=== PATIENT | male | born 1980 | race Caucasian/White ===

== ENCOUNTER 2016-12-11 11:17 | Emergency (ER) | payer MEDICAID ==
[~2016-12-11] VITALS: Ht 167.6 cm; Wt 65.0 kg
[~2016-12-11 11:17] MED LIST: ALBU0.63 NEB; BUTA1CAP57 PO; DIAZ2TAB3 PO; GABA300C10 PO; HYDR-3241 PO; LEVO750T6 PO; MECL25TA4 PO; METR500T PO; ONDA4TAB10 PO; OXYC-302 PO; OXYC5CAP4 PO; VALA1000 PO; naproxen PO
[2016-12-11] MEDS ORDERED: METHOCARBAMOL 750 MG TABLET ONE (12:20)
[2016-12-11] MEDS ORDERED: IBUPROFEN 200 MG TABLET ONE (12:20)
[2016-12-11] MEDS ORDERED: OXYcodone/APAP 5/325MG TABLET ONE (12:20)
[2016-12-11] MEDS ORDERED: OXYcodone/APAP 5/325MG TABLET PO ONE (12:30)
[2016-12-11] MEDS ORDERED: METHOCARBAMOL 750 MG TABLET PO ONE (12:30)
[2016-12-11] MEDS ORDERED: IBUPROFEN 200 MG TABLET PO ONE (12:30)
[2016-12-11] MEDS ORDERED: IBUP800T PO (12:30)
[2016-12-11] MEDS ORDERED: CYCL5TAB PO (12:30)
[2016-12-11 13:38] VITALS: BP 117/78
== END 2016-12-11 13:41 | disposition home or self-care (01) ==
LOC: ED 12:06
DX: S39.012A Strain of muscle, fascia and tendon of lower back, initial encounter (principal); M19.90 Unspecified osteoarthritis, unspecified site; G43.909 Migraine, unspecified, not intractable, without status migrainosus; J45.909 Unspecified asthma, uncomplicated; I50.9 Heart failure, unspecified; F17.210 Nicotine dependence, cigarettes, uncomplicated; Z88.0 Allergy status to penicillin; Z88.5 Allergy status to narcotic agent; Z88.8 Allergy status to other drugs, medicaments and biological substances; X58.XXXA Exposure to other specified factors, initial encounter; Y93.89 Activity, other specified; Y99.8 Other external cause status; Y92.89 Other specified places as the place of occurrence of the external cause
CPT/HCPCS: 72110; 99284

== ENCOUNTER 2016-12-29 22:46 | Emergency (ER) | payer MEDICAID ==
[~2016-12-29] VITALS: Ht 167.6 cm; Wt 71.5 kg
[~2016-12-29 22:46] MED LIST changes: +CYCL5TAB PO; +IBUP800T PO
[2016-12-29 22:51] VITALS: BP 100/64
[2016-12-29] MEDS ORDERED: DIPH,PERTUSS(ACELL),TET VAC/PF 0.5 ML IM-VACC ONE ×2 (23:30→23:49)
== END 2016-12-30 00:01 | disposition home or self-care (01) ==
LOC: ED 23:58
DX: S91.332A Puncture wound without foreign body, left foot, initial encounter (principal); W22.8XXA Striking against or struck by other objects, initial encounter; Y93.89 Activity, other specified; Y92.89 Other specified places as the place of occurrence of the external cause; Y99.8 Other external cause status; I50.9 Heart failure, unspecified
CPT/HCPCS: 90471; 90715

== ENCOUNTER 2017-07-22 14:58 | Emergency (ER) | payer MEDICAID ==
[~2017-07-22] VITALS: Ht 167.6 cm; Wt 70.0 kg
[~2017-07-22 14:58] MED LIST changes: +ALBU6.7H INH; +BUTA1CAP30 PO; +FURO20TA3 PO; +IBUP-1223 PO; -IBUP800T PO; +LITH300C PO; +MOME13HF INH; +OXYC5CAP2 PO; -OXYC5CAP4 PO; +POTA10CA PO; +TRAM50TA2 PO
[2017-07-22] MEDS ORDERED: DIPHENHYDRAMINE 50 MG/ML, 1ML ONE (17:56)
[2017-07-22] MEDS ORDERED: METOCLOPRAMIDE 5 MG/ML, 2ML ONE (17:56)
[2017-07-22] MEDS ORDERED: KETOROLAC 30 MG/1 ML ONE (17:56)
[2017-07-22] MEDS ORDERED: METOCLOPRAMIDE 5 MG/ML, 2ML IVPush ONE (18:00)
[2017-07-22] MEDS ORDERED: DIPHENHYDRAMINE 50 MG/ML, 1ML IVPush ONE (18:00)
[2017-07-22] MEDS ORDERED: KETOROLAC 30 MG/1 ML IVPush ONE (18:00)
[2017-07-22] MEDS ORDERED: SODIUM CHLORIDE FLUSH 10ML SYR IVF ONE (18:00)
[2017-07-22] MEDS ORDERED: SODIUM CHLORIDE 0.9% 1,000ML IVBOLUS ONE (18:00)
[2017-07-22 18:06] LABS: HEMATOCRIT 48.8 % (39.2-51.8); HEMOGLOBIN 16.9 g/dL (13.7-18.0); WHITE BLOOD COUNT 11.4 x10^3/uL (3.4-10)
[2017-07-22 18:14] LABS: BLOOD UREA NITROGEN 14 mg/dL (7-18)
[2017-07-22 20:20] VITALS: BP 96/63
== END 2017-07-22 20:24 | disposition home or self-care (01) ==
LOC: ED 18:50
DX: G43.009 Migraine without aura, not intractable, without status migrainosus (principal); H54.60 Unqualified visual loss, one eye, unspecified; J45.909 Unspecified asthma, uncomplicated; I50.9 Heart failure, unspecified; I42.9 Cardiomyopathy, unspecified; Z98.61 Coronary angioplasty status; Z90.49 Acquired absence of other specified parts of digestive tract
CPT/HCPCS: 36415; 80048; 82040; 85025; 93005; 96374; 96375; 99285; J1200; J1885; J2765; J7030

== ENCOUNTER 2017-10-10 12:47 | Emergency (ER) | payer MEDICAID ==
[~2017-10-10] VITALS: Ht 167.6 cm; Wt 70.0 kg
[2017-10-10] MEDS ORDERED: KETOROLAC 30 MG/1 ML IM ONE (13:30)
[2017-10-10] MEDS ORDERED: DIAZEPAM 5 MG TABLET PO ONE (13:30)
[2017-10-10] MEDS ORDERED: DIAZEPAM 5 MG TABLET ONE (14:22)
[2017-10-10] MEDS ORDERED: KETOROLAC 30 MG/1 ML ONE (14:22)
[2017-10-10] MEDS ORDERED: OXYcodone/APAP 5/325MG TABLET ONE (14:46)
[2017-10-10] MEDS ORDERED: SODIUM CHLORIDE 0.9% 1,000 ML IV ONE (14:58)
[2017-10-10] MEDS ORDERED: SODIUM CHLORIDE FLUSH 10ML SYR IVF ONE (15:00)
[2017-10-10] MEDS ORDERED: MORPHINE SULFATE 4 MG/ML, 1ML IVPush PRN (15:00)
[2017-10-10] MEDS ORDERED: DEXAMETHASONE 4 MG/ML, 1ML IV ONE (15:00)
[2017-10-10] MEDS ORDERED: OXYcodone/APAP 5/325MG TABLET PO ONE (15:00)
[2017-10-10] MEDS ORDERED: DEXAMETHASONE 4 MG/ML, 5ML ONE (15:04)
[2017-10-10 15:21] LABS: BASOPHILS # (AUTO) 0.08 x10^3/uL (0-0.1); BASOPHILS % (AUTO) 1 % (0-1); EOSINOPHILS # (AUTO) 0.32 x10^3/uL (0-0.4); EOSINOPHILS % (AUTO) 3 % (1-7); LYMPHOCYTES # (AUTO) 3.45 x10^3/uL (1-3.4); LYMPHOCYTES % (AUTO) 34 % (22-44); MD NO; MEAN CORPUSCULAR HEMOGLOBIN 31.1 pg (27.5-34.5); MEAN CORPUSCULAR HGB CONC 33.3 g/dL (33.2-36.2); MEAN CORPUSCULAR VOLUME 93.5 fL (81-97); MEAN PLATELET VOLUME 8.8 fL (7.4-10.4); MONOCYTES # (AUTO) 0.75 x10^3/uL (0.2-0.8); MONOCYTES % (AUTO) 7 % (2-9); NEUTROPHILS # (AUTO) 5.71 x10^3/uL (1.8-6.8); NEUTROPHILS % (AUTO) 55 % (42-75); PLATELET COUNT 266 x10^3/uL (130-400); RED BLOOD COUNT 5.83 x10^6/uL (4.38-5.82); RED CELL DISTRIBUTION WIDTH 13.2 % (9.4-14.8)
[2017-10-10 15:30] LABS: ANION GAP 6 mmol/L (5-15); CHLORIDE 105 mmol/L (98-107); CREATININE 0.94 mg/dL (0.7-1.3)
[2017-10-10] MEDS ORDERED: GADOBUTROL 7.5 MMOL/7.5 ML PFS ONE (15:37)
[2017-10-10 16:37] VITALS: BP 107/72
[2017-10-10 16:40] LABS: HCT (SEDRATE) 54.5 % (39.2-51.8)
== END 2017-10-10 17:09 | disposition home or self-care (01) ==
LOC: ED 16:15
DX: M51.16 Intervertebral disc disorders with radiculopathy, lumbar region (principal); Z88.0 Allergy status to penicillin; Z88.5 Allergy status to narcotic agent; Z88.8 Allergy status to other drugs, medicaments and biological substances; Z79.899 Other long term (current) drug therapy
CPT/HCPCS: 36415; 72110; 72158; 80048; 82040; 85025; 85651; 96372; 99285; A9585; J1885

== ENCOUNTER 2017-10-31 16:37 | Emergency (ER) | payer MEDICAID ==
[~2017-10-31] VITALS: Ht 167.6 cm; Wt 78.0 kg
[2017-10-31 17:26] LABS: BASOPHILS # (AUTO) 0.03 x10^3/uL (0-0.1); BASOPHILS % (AUTO) 0 % (0-1); EOSINOPHILS # (AUTO) 0.29 x10^3/uL (0-0.4); EOSINOPHILS % (AUTO) 2 % (1-7); LYMPHOCYTES # (AUTO) 3.22 x10^3/uL (1-3.4); LYMPHOCYTES % (AUTO) 27 % (22-44); MD NO; MEAN CORPUSCULAR HEMOGLOBIN 31.6 pg (27.5-34.5); MEAN CORPUSCULAR HGB CONC 33.7 g/dL (33.2-36.2); MEAN CORPUSCULAR VOLUME 93.8 fL (81-97); MEAN PLATELET VOLUME 9.1 fL (7.4-10.4); MONOCYTES # (AUTO) 0.66 x10^3/uL (0.2-0.8); MONOCYTES % (AUTO) 6 % (2-9); NEUTROPHILS # (AUTO) 7.54 x10^3/uL (1.8-6.8); NEUTROPHILS % (AUTO) 64 % (42-75); PLATELET COUNT 275 x10^3/uL (130-400); RED BLOOD COUNT 5.37 x10^6/uL (4.38-5.82); RED CELL DISTRIBUTION WIDTH 13.2 % (9.4-14.8)
[2017-10-31 17:28] LABS: INTERNATIONAL NORMALIZED RATIO 1.04 (0.93-1.1); PROTHROMBIN TIME 10.8 Seconds (9.6-11.5)
[2017-10-31 17:32] LABS: ALANINE AMINOTRANSFERASE 25 U/L (12-78); ALBUMIN 3.8 g/dL (3.4-5.0); ANION GAP 7 mmol/L (5-15); CHLORIDE 110 mmol/L (98-107); CREATININE 0.99 mg/dL (0.7-1.3)
[2017-10-31 17:37] LABS: ALKALINE PHOSPHATASE 72 U/L (45-117); BILIRUBIN,TOTAL 0.4 mg/dL (0.2-1.0); TOTAL PROTEIN 7.4 g/dL (6.4-8.2); TROPONIN I < 0.015 ng/mL (0.000-0.045)
[2017-10-31 19:28] LABS: TROPONIN I < 0.015 ng/mL (0.000-0.045)
[2017-10-31] MEDS ORDERED: MAALOX/HYOSCYAMINE/LIDOCAINE 45 ML BTL ONE (19:59)
[2017-10-31] MEDS ORDERED: IBUPROFEN 200 MG TABLET ONE (19:59)
[2017-10-31] MEDS ORDERED: SODIUM CHLORIDE 0.9% 1,000ML IVBOLUS ONE (20:00)
[2017-10-31] MEDS ORDERED: IBUPROFEN 200 MG TABLET PO ONE (20:00)
[2017-10-31] MEDS ORDERED: MAALOX/HYOSCYAMINE/LIDOCAINE 45 ML BTL PO ONE (20:00)
[2017-10-31] MEDS ORDERED: ONDANSETRON ODT 8 MG PO ONE (21:00)
[2017-10-31] MEDS ORDERED: ONDANSETRON ODT 8 MG ONE (21:03)
[2017-10-31 22:04] VITALS: BP 94/59
== END 2017-10-31 22:06 | disposition home or self-care (01) ==
LOC: ED 21:29
DX: R07.89 Other chest pain (principal); J44.9 Chronic obstructive pulmonary disease, unspecified; M19.90 Unspecified osteoarthritis, unspecified site; Z90.49 Acquired absence of other specified parts of digestive tract; I42.9 Cardiomyopathy, unspecified
CPT/HCPCS: 36415; 71045; 80053; 84484; 85025; 85610; 85730; 93005; 96360; 99285; J7030; Q0162

== ENCOUNTER 2018-05-14 15:27 | Observation (INO) | payer MEDICAID ==
[~2018-05-14] VITALS: Ht 172.7 cm; Wt 65.8 kg
[2018-05-14 16:00] LABS: BASOPHILS # (AUTO) 0.05 x10^3/uL (0-0.1); BASOPHILS % (AUTO) 1 % (0-1); EOSINOPHILS # (AUTO) 0.22 x10^3/uL (0-0.4); EOSINOPHILS % (AUTO) 2 % (1-7); LYMPHOCYTES % (AUTO) 37 % (22-44); MD NO; MEAN CORPUSCULAR HEMOGLOBIN 31.7 pg (27.5-34.5); MEAN CORPUSCULAR HGB CONC 33.9 g/dL (33.2-36.2); MEAN CORPUSCULAR VOLUME 93.6 fL (81-97); MEAN PLATELET VOLUME 8.7 fL (7.4-10.4); MONOCYTES # (AUTO) 0.85 x10^3/uL (0.2-0.8); MONOCYTES % (AUTO) 9 % (2-9); NEUTROPHILS # (AUTO) 5.08 x10^3/uL (1.8-6.8); NEUTROPHILS % (AUTO) 51 % (42-75); PLATELET COUNT 288 x10^3/uL (130-400); RED BLOOD COUNT 5.29 x10^6/uL (4.38-5.82); RED CELL DISTRIBUTION WIDTH 13.7 % (9.4-14.8)
[2018-05-14 16:09] LABS: ALANINE AMINOTRANSFERASE 44 U/L (12-78); ALBUMIN 4.1 g/dL (3.4-5.0); ANION GAP 8 mmol/L (5-15); CALCIUM 8.8 mg/dL (8.5-10.1); CHLORIDE 104 mmol/L (98-107); SALICYLATE LEVEL 3.8 mg/dL (2.8-20.0)
[2018-05-14 16:11] LABS: ALKALINE PHOSPHATASE 95 U/L (45-117); BILIRUBIN,TOTAL 0.5 mg/dL (0.2-1.0); CREATININE 0.98 mg/dL (0.7-1.3); TOTAL PROTEIN 8.3 g/dL (6.4-8.2)
[2018-05-14 16:14] LABS: ACETAMINOPHEN < 2 mcg/mL (10-30)
[2018-05-14 16:53] LABS: AMPHETAMINE SCREEN, URINE Negative (Negative); BARBITURATE SCREEN, URINE Negative (Negative); BENZODIAZEPINE SCREEN, URINE Negative (Negative); CANNABINOID SCREEN, URINE Negative (Negative); COCAINE SCREEN, URINE Negative (Negative); METHADONE SCREEN, URINE Negative (Negative); OPIATE SCREEN, URINE Negative (Negative)
[2018-05-14] MEDS ORDERED: ASCO10004 PO (16:55)
[2018-05-14] MEDS ORDERED: LOPE2CAP PO (16:55)
[2018-05-14] MEDS ORDERED: PANT40TA3 PO (16:55)
[2018-05-14] MEDS ORDERED: PROP80CA3 PO (16:55)
[2018-05-14] MEDS ORDERED: MULT1TAB60 PO (16:55)
[2018-05-14] MEDS ORDERED: ONDA4TAB12 PO (16:55)
[2018-05-14] MEDS ORDERED: DULOXETINE PO (16:55)
[2018-05-14] MEDS ORDERED: VALA1000 PO (16:55)
[2018-05-14] MEDS ORDERED: HYDR25TA11 PO (16:55)
[2018-05-14] MEDS ORDERED: PROPRANOLOl 80 MG CAP.SA.24H PO PRN (21:00)
[2018-05-14] MEDS ORDERED: DOCUSATE 100 MG CAPSULE PO PRN (21:00)
[2018-05-14] MEDS ORDERED: [UNRECOGNIZED DRUG - OTHER] INH SCH (21:00)
[2018-05-14] MEDS ORDERED: FORMOTEROL INH SCH (21:00)
[2018-05-14] MEDS ORDERED: MOMETASONE INH SCH (21:00)
[2018-05-14] MEDS ORDERED: ALBUTEROL SULFATE INH PRN (21:00)
[2018-05-14] MEDS ORDERED: CYCLOBENZAPRINE 10 MG TABLET ONE (22:26)
[2018-05-14] MEDS ORDERED: IBUPROFEN 800 MG TABLET ONE (22:26)
[2018-05-14] MEDS ORDERED: GABAPENTIN 300 MG CAPSULE ONE (22:27)
[2018-05-14] MEDS ORDERED: OLANZAPINE 5 MG TABLET ONE (22:27)
[2018-05-14] MEDS: HYDROXYZINE HCL 50 MG PO SCH (22:55)
[2018-05-14] MEDS: ASCORBIC ACID 500 MG TABLET PO SCH (22:55)
[2018-05-14] MEDS: DULOXETINE 30 MG CAPSULE.DR PO SCH (22:55)
[2018-05-14] MEDS: IBUPROFEN 800 MG TABLET PO SCH (22:55)
[2018-05-14] MEDS: TEMPLATE NON-FORMULARY MED. (Gabapentin** 300 MG) PO SCH (22:56)
[2018-05-14] MEDS: TEMPLATE NON-FORMULARY MED. (Cyclobenzaprine Hcl** 5 MG) PO SCH (22:56)
[2018-05-14] MEDS: OLANZAPINE 5 MG TABLET PO SCH (22:56)
[2018-05-15] MEDS ORDERED: PANTOPRAZOLE SODIUM 40 MG PO SCH (09:00)
[2018-05-15] MEDS ORDERED: TEMPLATE NON-FORMULARY MED. (Valacyclovir Hcl** (Valacyclovir**) 1,000 MG) PO SCH (09:00)
[2018-05-15] MEDS ORDERED: MULTIVITAMIN PO SCH (09:00)
[2018-05-15] MEDS: HYDROXYZINE HCL 50 MG PO SCH ×2 (09:00→14:53)
[2018-05-15] MEDS: TEMPLATE NON-FORMULARY MED. (Cyclobenzaprine Hcl** 5 MG) PO SCH ×2 (09:00→14:53)
[2018-05-15] MEDS: TEMPLATE NON-FORMULARY MED. (Gabapentin** 300 MG) PO SCH ×2 (09:00→14:53)
[2018-05-15] MEDS ORDERED: IBUPROFEN 800 MG TABLET ONE (13:30)
[2018-05-15] MEDS: IBUPROFEN 800 MG TABLET PO SCH ×2 (13:32→21:40)
[2018-05-15] MEDS: DULOXETINE 30 MG CAPSULE.DR PO SCH ×2 (13:32→21:42)
[2018-05-15] MEDS: ASCORBIC ACID 500 MG TABLET PO SCH ×2 (14:50→21:42)
[2018-05-15 16:45] VITALS: BP 115/79
[2018-05-15] MEDS ORDERED: DULARA MC SCH (17:00)
[2018-05-15 19:38] VITALS: BP 108/61
[2018-05-15] MEDS: GABAPENTIN 300 MG CAPSULE PO SCH (21:41)
[2018-05-15] MEDS: OLANZAPINE 5 MG TABLET PO SCH (21:42)
[2018-05-15] MEDS: CYCLOBENZAPRINE 10 MG TABLET PO SCH (21:42)
[2018-05-15] MEDS: hydrOXyzine 50MG TABLET PO SCH (21:45)
[2018-05-16 07:57] VITALS: BP 113/65
[2018-05-16] MEDS: GABAPENTIN 300 MG CAPSULE PO SCH ×3 (08:50→20:41)
[2018-05-16] MEDS: DULOXETINE 30 MG CAPSULE.DR PO SCH ×2 (08:50→20:40)
[2018-05-16] MEDS: IBUPROFEN 800 MG TABLET PO SCH ×2 (08:50→20:41)
[2018-05-16] MEDS: MULTIVITAMIN 1 TABLET PO SCH (08:50)
[2018-05-16] MEDS: CYCLOBENZAPRINE 10 MG TABLET PO SCH ×2 (08:50→20:41)
[2018-05-16] MEDS: hydrOXyzine 50MG TABLET PO SCH ×2 (08:51→20:44)
[2018-05-16] MEDS: ASCORBIC ACID 500 MG TABLET PO SCH ×2 (08:51→20:41)
[2018-05-16] MEDS: VALACYCLOVIR 500MG TABLET PO SCH (08:53)
[2018-05-16] MEDS: PANTOPROZOLE 40MG TABLET PO SCH (08:53)
[2018-05-16] MEDS: FLUTICASONE/VILANTEROL 200-25MCG/INH INH SCH (10:17)
[2018-05-16 13:39] VITALS: BP 107/70
[2018-05-16 19:44] VITALS: BP 114/74
[2018-05-16] MEDS: OLANZAPINE 5 MG TABLET PO SCH (20:41)
[2018-05-17 08:00] VITALS: BP 122/78
[2018-05-17] MEDS: hydrOXyzine 50MG TABLET PO SCH ×2 (09:00→20:05)
[2018-05-17] MEDS: ASCORBIC ACID 500 MG TABLET PO SCH ×2 (09:13→20:05)
[2018-05-17] MEDS: IBUPROFEN 800 MG TABLET PO SCH ×2 (09:13→20:05)
[2018-05-17] MEDS: FLUTICASONE/VILANTEROL 200-25MCG/INH INH SCH (09:13)
[2018-05-17] MEDS: PANTOPROZOLE 40MG TABLET PO SCH (09:13)
[2018-05-17] MEDS: VALACYCLOVIR 500MG TABLET PO SCH (09:14)
[2018-05-17] MEDS: DULOXETINE 30 MG CAPSULE.DR PO SCH ×2 (09:14→20:05)
[2018-05-17] MEDS: CYCLOBENZAPRINE 10 MG TABLET PO SCH ×2 (09:14→23:20)
[2018-05-17] MEDS: GABAPENTIN 300 MG CAPSULE PO SCH ×3 (09:16→20:05)
[2018-05-17] MEDS: MULTIVITAMIN 1 TABLET PO SCH (09:16)
[2018-05-17 12:37] VITALS: BP 118/84
[2018-05-17] MEDS: ACETAMINOPHEN 325 MG TABLET PO PRN (15:58)
[2018-05-17 19:31] VITALS: BP 105/80
[2018-05-17] MEDS: OLANZAPINE 5 MG TABLET PO SCH (20:05)
[2018-05-18] MEDS: CYCLOBENZAPRINE 10 MG TABLET PO SCH ×2 (08:09→21:07)
[2018-05-18] MEDS: FLUTICASONE/VILANTEROL 200-25MCG/INH INH SCH (08:09)
[2018-05-18] MEDS: VALACYCLOVIR 500MG TABLET PO SCH (08:09)
[2018-05-18] MEDS: hydrOXyzine 50MG TABLET PO SCH ×2 (08:10→21:06)
[2018-05-18] MEDS: DULOXETINE 30 MG CAPSULE.DR PO SCH ×2 (08:10→21:06)
[2018-05-18] MEDS: IBUPROFEN 800 MG TABLET PO SCH ×2 (08:10→21:06)
[2018-05-18] MEDS: ASCORBIC ACID 500 MG TABLET PO SCH ×2 (08:10→21:06)
[2018-05-18] MEDS: GABAPENTIN 300 MG CAPSULE PO SCH ×3 (08:11→21:06)
[2018-05-18] MEDS: MULTIVITAMIN 1 TABLET PO SCH (08:11)
[2018-05-18] MEDS: PANTOPROZOLE 40MG TABLET PO SCH (08:11)
[2018-05-18 08:15] VITALS: BP 119/75
[2018-05-18] MEDS ORDERED: LIDODERM 5% PATCH TD SCH (10:30)
[2018-05-18 12:41] VITALS: BP 115/75
[2018-05-18] MEDS: ACETAMINOPHEN 325 MG TABLET PO PRN (16:07)
[2018-05-18] MEDS ORDERED: CALCIUM CARBONATE 500 MG TAB.CHEW PO PRN (17:30)
[2018-05-18] MEDS ORDERED: ONDANSETRON ODT 4 MG PO PRN (17:30)
[2018-05-18] MEDS ORDERED: ONDANSETRON ODT 4 MG ONE (17:34)
[2018-05-18 20:00] VITALS: BP 112/75
[2018-05-18] MEDS: OLANZAPINE 5 MG TABLET PO SCH (21:06)
[2018-05-19 08:00] VITALS: BP 93/56
[2018-05-19] MEDS: GABAPENTIN 300 MG CAPSULE PO SCH (08:44)
[2018-05-19] MEDS: FLUTICASONE/VILANTEROL 200-25MCG/INH INH SCH (08:44)
[2018-05-19] MEDS: hydrOXyzine 50MG TABLET PO SCH (08:44)
[2018-05-19] MEDS: CYCLOBENZAPRINE 10 MG TABLET PO SCH (08:44)
[2018-05-19] MEDS: VALACYCLOVIR 500MG TABLET PO SCH (08:44)
[2018-05-19] MEDS: PANTOPROZOLE 40MG TABLET PO SCH (08:44)
[2018-05-19] MEDS: IBUPROFEN 800 MG TABLET PO SCH (08:44)
[2018-05-19] MEDS: MULTIVITAMIN 1 TABLET PO SCH (08:45)
[2018-05-19] MEDS: ASCORBIC ACID 500 MG TABLET PO SCH (08:45)
[2018-05-19] MEDS: DULOXETINE 30 MG CAPSULE.DR PO SCH (08:45)
== END 2018-05-19 14:30 ==
LOC: ED 16:30 → EDIP 19:24 → INTOOBSV 19:24 → 2N 05-15 16:00
PROVIDERS: ADMIT Internal Medicine; ATTEND Internal Medicine
DX: R45.851 Suicidal ideations (principal); F31.9 Bipolar disorder, unspecified; J44.9 Chronic obstructive pulmonary disease, unspecified; I42.9 Cardiomyopathy, unspecified; I50.9 Heart failure, unspecified; G89.29 Other chronic pain; G43.909 Migraine, unspecified, not intractable, without status migrainosus; F17.200 Nicotine dependence, unspecified, uncomplicated; F15.10 Other stimulant abuse, uncomplicated; F43.12 Post-traumatic stress disorder, chronic
CPT/HCPCS: 36415; 80053; 80164; 80307; 80329; 85025; 99285; G0378; Q0162; Q0177; G0480

== ENCOUNTER 2018-12-15 13:12 | Emergency (ER) | payer MEDICAID ==
[~2018-12-15] VITALS: Ht 175.3 cm; Wt 65.9 kg
[~2018-12-15 13:12] MED LIST changes: +ASCO10004 PO; +DULOXETINE PO; +HYDR25TA11 PO; +LOPE2CAP PO; +MULT1TAB60 PO; +ONDA4TAB12 PO; +PANT40TA3 PO; +PROP80CA3 PO
[2018-12-15 13:52] LABS: BASOPHILS # (AUTO) 0.05 x10^3/uL (0-0.1); BASOPHILS % (AUTO) 1 % (0-1); EOSINOPHILS # (AUTO) 0.35 x10^3/uL (0-0.4); EOSINOPHILS % (AUTO) 4 % (1-7); LYMPHOCYTES # (AUTO) 3.24 x10^3/uL (1-3.4); LYMPHOCYTES % (AUTO) 37 % (22-44); MD NO; MEAN CORPUSCULAR HEMOGLOBIN 31.7 pg (27.5-34.5); MEAN CORPUSCULAR HGB CONC 33.8 g/dL (33.2-36.2); MEAN CORPUSCULAR VOLUME 93.7 fL (81-97); MEAN PLATELET VOLUME 8.9 fL (7.4-10.4); MONOCYTES % (AUTO) 9 % (2-9); NEUTROPHILS # (AUTO) 4.36 x10^3/uL (1.8-6.8); NEUTROPHILS % (AUTO) 50 % (42-75); PLATELET COUNT 250 x10^3/uL (130-400); RED BLOOD COUNT 4.89 x10^6/uL (4.38-5.82)
[2018-12-15 14:05] LABS: ALANINE AMINOTRANSFERASE 28 U/L (12-78); ALBUMIN 3.9 g/dL (3.4-5.0); ANION GAP 7 mmol/L (5-15); CALCIUM 8.9 mg/dL (8.5-10.1); CHLORIDE 109 mmol/L (98-107)
[2018-12-15 14:07] LABS: ALKALINE PHOSPHATASE 89 U/L (45-117); BILIRUBIN,TOTAL 0.6 mg/dL (0.2-1.0); CREATININE 1.18 mg/dL (0.7-1.3); TOTAL PROTEIN 7.3 g/dL (6.4-8.2)
--- NOTE | 2018-12-15 14:15 | NUR ---
Medical student at bedside.
[2018-12-15] MEDS ORDERED: MAALOX/HYOSCYAMINE/LIDOCAINE 45 ML BTL ONE (14:51)
[2018-12-15] MEDS ORDERED: MAALOX/HYOSCYAMINE/LIDOCAINE 45 ML BTL PO ONE (15:00)
[2018-12-15] MEDS ORDERED: MAGNESIUM CITRATE 300ML ORAL SOL PO ONE (15:00)
[2018-12-15] MEDS ORDERED: MAGNESIUM CITRATE 300ML ORAL SOL ONE (15:05)
[2018-12-15 15:19] VITALS: BP 125/74
--- NOTE | 2018-12-15 15:19 | NUR ---
Patient/Caregiver given discharge instructions and they have confirmed that they understand the instructions. Patient ambulatory with steady gait.
[2018-12-15 15:26] LABS: MICROSCOPIC INDICATED
[2018-12-15 15:28] LABS: CULTURE INDICATED? NO
== END 2018-12-15 15:20 | disposition home or self-care (01) ==
LOC: ED 15:14
DX: K59.00 Constipation, unspecified (principal); R11.0 Nausea; J44.9 Chronic obstructive pulmonary disease, unspecified; G43.909 Migraine, unspecified, not intractable, without status migrainosus
CPT/HCPCS: 36415; 74021; 80053; 81001; 85025; 99284

== ENCOUNTER 2018-12-19 00:07 | Emergency (ER) | payer MEDICAID ==
[~2018-12-19] VITALS: Ht 172.7 cm; Wt 66.0 kg
[2018-12-19] MEDS ORDERED: KETOROLAC 30 MG/1 ML IM ONE (00:30)
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
[2018-12-19 00:53] LABS: BASOPHILS # (AUTO) 0.04 x10^3/uL (0-0.1); BASOPHILS % (AUTO) 0 % (0-1); EOSINOPHILS % (AUTO) 1 % (1-7); LYMPHOCYTES % (AUTO) 22 % (22-44); MD NO; MEAN CORPUSCULAR HGB CONC 34.6 g/dL (33.2-36.2); MEAN CORPUSCULAR VOLUME 92.4 fL (81-97); MEAN PLATELET VOLUME 9.3 fL (7.4-10.4); MONOCYTES # (AUTO) 0.52 x10^3/uL (0.2-0.8); MONOCYTES % (AUTO) 6 % (2-9); NEUTROPHILS # (AUTO) 5.98 x10^3/uL (1.8-6.8); NEUTROPHILS % (AUTO) 70 % (42-75); PLATELET COUNT 236 x10^3/uL (130-400); RED BLOOD COUNT 5.15 x10^6/uL (4.38-5.82); RED CELL DISTRIBUTION WIDTH 12.8 % (9.4-14.8)
[2018-12-19] MEDS ORDERED: KETOROLAC 30 MG/1 ML ONE (01:01)
[2018-12-19 01:04] VITALS: BP 112/73
--- NOTE | 2018-12-19 01:11 | NUR ---
BREAK RN: PT BACK FROM XRAY
--- NOTE | 2018-12-19 01:55 | NUR ---
REPORT OF PT FROM ROSA ELENA SANTAMARIA AND ASSUMING CARE OF PT AT THIS TIME. PT RESTING COMFORTABLY IN [facility]. RONAL. PT HAS CALL LIGHT WITHIN REACH AT THIS TIME.
[2018-12-19] MEDS ORDERED: METF500T17 PO (02:42)
[2018-12-19] MEDS ORDERED: OMEP10CA4 PO (02:42)
[2018-12-19] MEDS ORDERED: LISI2.5T PO (02:42)
[2018-12-19] MEDS ORDERED: TAMS-11 PO (02:42)
[2018-12-19] MEDS ORDERED: CARV3.122 PO (02:42)
--- NOTE | 2018-12-19 02:42 | NUR ---
PT D/C WITH D/C SUMMARY. PT VERBALIZES UNDERSTANDING OF D/C INSTRUCTIONS. PT AMBULATES TO REGISTRATION DESK WITH STEADY GAIT FOR D/C HOME. PT CALLED [facility] FOR RIDE HOME.
== END 2018-12-19 02:46 | disposition home or self-care (01) ==
LOC: ED 00:25
DX: G89.11 Acute pain due to trauma (principal); R07.89 Other chest pain; M54.2 Cervicalgia; M54.6 Pain in thoracic spine; Z72.9 Problem related to lifestyle, unspecified; Z87.891 Personal history of nicotine dependence; Y00.XXXA Assault by blunt object, initial encounter; Y93.89 Activity, other specified; Y92.009 Unspecified place in unspecified non-institutional (private) residence as the place of occurrence of the external cause; Y99.8 Other external cause status
CPT/HCPCS: 36415; 70450; 71046; 72072; 72125; 85025; 96372; 99284; J1885

== ENCOUNTER 2018-12-19 20:30 | Emergency (ER) | payer MEDICAID ==
[~2018-12-19] VITALS: Ht 172.7 cm; Wt 64.0 kg
[~2018-12-19 20:30] MED LIST changes: +CARV3.122 PO; +LISI2.5T PO; +METF500T17 PO; +OMEP10CA4 PO; +TAMS-11 PO
[2018-12-19] MEDS ORDERED: HYDROcodone/APAP 5/325 TABLET PO STA (21:02)
[2018-12-19] MEDS ORDERED: HYDROcodone/APAP 5/325 TABLET ONE (21:21)
[2018-12-19 22:20] VITALS: BP 115/75
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
== END 2018-12-19 22:22 | disposition home or self-care (01) ==
LOC: ED 21:42
DX: S20.212A Contusion of left front wall of thorax, initial encounter (principal); J44.9 Chronic obstructive pulmonary disease, unspecified; I50.9 Heart failure, unspecified; G43.909 Migraine, unspecified, not intractable, without status migrainosus; F17.210 Nicotine dependence, cigarettes, uncomplicated; Y04.8XXA Assault by other bodily force, initial encounter; Y93.89 Activity, other specified; Y92.009 Unspecified place in unspecified non-institutional (private) residence as the place of occurrence of the external cause; Y99.8 Other external cause status
CPT/HCPCS: 93005; 99283